=== PATIENT | female | born 1975 | race Caucasian/White ===

== ENCOUNTER 2023-11-03 08:44 | Day surgery (SDC) | payer OTHER ==
[~2023-11-03] VITALS: Ht 167.6 cm; Wt 86.2 kg
[2023-11-03] MEDS ORDERED: LIDOCAINE 2% 100 MG/5 ML UJET TP ONE (10:51)
[2023-11-03] MEDS ORDERED: fentaNYL citrate 0.05 MG/ML VIAL ONE (10:51)
[2023-11-03] MEDS: KETOROLAC 30 MG/ML VIAL ONE (11:00)
== END 2023-11-03 11:40 | disposition home or self-care (01) ==
LOC: MMU 08:44 → MDS 08:44
PROVIDERS: ATTEND Internal Medicine Gastroenterology
DX: Z12.11 Encounter for screening for malignant neoplasm of colon (principal); Z79.899 Other long term (current) drug therapy; Z98.890 Other specified postprocedural states
CPT/HCPCS: 45378; J1885; J3010